=== PATIENT | female | born 1965 | race Caucasian/White ===

== ENCOUNTER 2017-11-24 23:46 | Emergency (ER) | payer OTHER ==
[~2017-11-24] VITALS: Ht 165.1 cm; Wt 79.5 kg
[2017-11-24] MEDS ORDERED: PROAIR HFA0.09 MG/AC IH (23:58)
[2017-11-24] MEDS ORDERED: ALLEGRA 180MG180 MG PO (23:58)
[2017-11-24] MEDS ORDERED: AMITRIPTYLINE H25 M1 PO (23:59)
[2017-11-24] MEDS ORDERED: BENADRYL25 M2 PO (23:59)
[2017-11-25 00:11] LABS: BASO # 0.1 (0.0-0.2); BASO % 0.4 % (0.0-2.0); EOS % 0.2 % (0-4.0); GRAN # 10.1 (1.4-6.5); GRAN % 78.3 % (42.2-75.2); HEMATOCRIT 42.7 % (37.0-47.0); HEMOGLOBIN 15.1 g/dl (12.5-16.0); LYMPH # 2.1 (1.2-3.4); LYMPH % 16.2 % (20.0-51.0); MEAN CELL VOLUME 90 fl (80.0-100.0); MEAN CORPUSCULAR HEMOGLOBIN 32 pg (27.0-31.0); MEAN CORPUSCULAR HGB CONC 35 g/dl (33.0-37.0); MEAN PLATELET VOLUME 8.8 fl (7.4-10.4); MONO # 0.6 (0.1-0.6); MONO % 4.7 % (1.7-9.3); PLATELET COUNT 255 K/mm3 (130-400); RED BLOOD COUNT 4.76 M/mm3 (4.10-5.30); REDCELL DISTRIBUTION WIDTH-CV 12.3 % (11.5-14.5)
[2017-11-25 00:25] VITALS: TEMP 98.6
[2017-11-25] MEDS ORDERED: SYNTHROID0.088 MG/T PO (00:31)
[2017-11-25] MEDS ORDERED: FLONASE NASAL S16 GM NS (00:31)
[2017-11-25] MEDS ORDERED: FLONASE SENSIM9.9 ML NS (00:31)
[2017-11-25] MEDS ORDERED: SINGULAIR 110 MG/TAB PO (00:32)
[2017-11-25] MEDS ORDERED: ZOFRAN 4MG T4 MG/TAB PO (00:32)
[2017-11-25] MEDS ORDERED: ZANTAC 300300 MG PO (00:32)
[2017-11-25] MEDS ORDERED: ZOMIG ZMT PO (00:33)
[2017-11-25 00:41] LABS: ALBUMIN 4.3 gm/dL (3.5-5.0); BILIRUBIN,TOTAL 0.9 mg/dL (0.0-1.0); C-REACTIVE PROTEIN 0.7 mg/dL (0.0-0.9); CALCIUM 9.7 mg/dL (8.4-10.2); CREATININE, serum 0.83 mg/dL (0.52-1.25); POTASSIUM 3.7 mmol/L (3.4-5.0); TOTAL PROTEIN 7.6 gm/dL (6.4-8.2)
[2017-11-25] MEDS ORDERED: ZOFRAN ODT4 MG PO ×2 (00:58→01:02)
[2017-11-25 01:24] VITALS: BP 116/74; PULSE 75
== END 2017-11-25 01:35 | disposition home or self-care (01) ==
LOC: COL.ER 23:46
PROVIDERS: Emergency Medicine
DX: D89.40 Mast cell activation, unspecified (principal); G43.909 Migraine, unspecified, not intractable, without status migrainosus; Z90.49 Acquired absence of other specified parts of digestive tract; Z98.890 Other specified postprocedural states; Z87.19 Personal history of other diseases of the digestive system; Z79.51 Long term (current) use of inhaled steroids
CPT/HCPCS: J1200; J1885; J2405; J2550; J7030